=== PATIENT | female | born 1960 | race Caucasian/White ===

== ENCOUNTER 2021-12-10 07:58 | Emergency (ER) | payer MEDICAID, SELFPAY ==
[2021-12-10 08:12] VITALS: BP 130/72; PULSE 68; RESP 16; TEMP 36.1; O2SAT 98; BMI 25.2
[2021-12-10 08:57] LABS: Appearance Urine CLEAR; Color Urine YELLOW; Glucose Urine UA NEG (NEG); Leukocyte Esterase Urine NEG (NEG); Nitrite Urine NEG (NEG); Specific Gravity - Urine >= 1.030 (1.005-1.025); UACC Culture Trigger NO; Urine Blood TRACE (NEG); Urine Ketones 15 MG/DL (NEG); Urine Protein NEG (NEG-TRACE)
[2021-12-10 08:58] LABS: MANUAL DIFF FLAG NO
[2021-12-10 09:13] LABS: Anion Gap 13 (12-20); Blood Urea Nitrogen 15 mg/dL (9-16); Calcium 9.9 mg/dL (8.4-10.2); Carbon Dioxide 24 mmol/L (22-29); Chloride 108 mmol/L (96-108); Creatinine Clr Calc Pharmacy 69.3; Estimated Glomerular Filt Rate > 60; Glucose Random 115 mg/dL (60-115); Potassium 4.3 mmol/L (3.3-5.1); Sodium 141 mmol/L (135-145)
[2021-12-10 09:14] LABS: COVID-19 Test Negative (Negative); Squamous Epithelial Cell Urine 2+ /LPF
[2021-12-10 09:15] LABS: Bacteria Urine TRACE /LPF; RBC Urine 0-2 /HPF (0); WBC Urine 0-2 /HPF (0-4)
[2021-12-10 09:20] LABS: Basophils Percent Auto 0.7 % (0-2); Eosinophils Absolute Auto 0.2 X10*3/uL (0.0-0.4); Eosinophils Percent Auto 2.9 % (0-4); Hematocrit 38.3 % (37.0-47.0); Hemoglobin 12.3 g/dl (12.0-16.0); Imm Gran Abs Auto 0.02 X10*3/uL (0.00-0.03); Imm Gran Pct Auto 0.4 % (0.0-0.4); Lymphocytes Absolute Auto 1.6 X10*3/uL (1.2-4.9); Lymphocytes Percent Auto 28.5 % (20-40); Mean Corpuscular HGB Conc 32.1 g/dl (31.0-35.0); Mean Corpuscular Hemoglobin 29.8 pg (27.0-33.0); Mean Corpuscular Volume 92.7 fL (80.0-98.0); Mean Platelet Volume 9.8 fL (9.4-12.3); Monocytes Absolute Auto 0.6 X10*3/uL (0.1-1.2); Monocytes Percent Auto 11.1 % (2-11); Neutrophils Absolute Auto 3.1 x10*3/uL (2.0-8.3); Neutrophils Percent Auto 56.4 % (45-73); Platelet Count 286 X10*3/uL (160-400); Red Blood Count 4.13 X10*6/uL (4.20-5.50); Red Cell Distribution Width 13.3 % (11.0-16.0); White Blood Count 5.6 X10*3/uL (4.8-10.8)
--- NOTE | 2021-12-10 11:25 | ED.GENADULT ---
HPI - General Adult General Chief complaint: Weakness Stated complaint: unsteady, nausous Time Seen by Provider: 12/10/21 10:40 Source: patient Mode of arrival: ambulatory Limitations: no limitations History of Present Illness HPI narrative: Patient presents to the emergency department today for evaluation of her ?legs feeling like Jell-O? she states that when she woke up at 07:00 o'clock this morning she felt this way. She felt as though she was going to fall down but she did not have a fall, and did not need to sit down. She was able to walk up stairs to her daughter with and brought her to the emergency department. She denies headache, vision changes, dizziness, lightheadedness, neck pain, chest pain, palpitations, shortness of breath, difficulty breathing, cough, nausea, vomiting, abdominal pain, dysuria, urinary frequency, urine or bowel dysfunction, numbness or tingling of the upper lower extremities, saddle anesthesia. Reports depression, no SI/HI. Additionally she says she has intermittent sensation of something crawling beneath her right eye. Related Data Allergies Allergy/AdvReac Type Severity Reaction Status Date / Time No Known Allergies Allergy Unverified 04/27/20 16:43 [No Known Allergies*] Review of Systems Review of Systems: Constitutional: No weight loss, fever, chills, or fatigue. HEENT: No visual loss, blurred vision, double vision or yellow sclera. No hearing loss, sneezing, congestion, runny nose or sore throat. Skin: No rash or itching. Cardiovascular: No chest pain, chest pressure or chest discomfort. No palpitations or pedal edema. Respiratory: No shortness of breath, cough or sputum production. Gastrointestinal: No anorexia, nausea, vomiting or diarrhea. No abdominal pain or blood in stool. Genitourinary: No burning micturition. No urinary frequency or incontinence. Neurologic: Positive unsteady gait. No headache, dizziness, syncope, unilateral weakness, ataxia, numbness or tingling in the extremities. No change in bowel or bladder control. Musculoskeletal: No muscle pain, back pain, joint pain or stiffness. Hematologic: No bleeding or bruising. Lymphatics: No enlarged lymph nodes. Psychiatric:No depression or anxiety. Endocrine: . No polyuria or polydipsia. Yes all other systems are reviewed and are negative [facility] Past Medical History Attestation statement: The following information was validated with the patient. Source: old records reviewed Social History Social History Advance Directives: No Advance Directives Information Provided: No Patient : No Physical Exam ED Vital Signs: Vital Signs - 24 hr 12/10/21 08:12 Temperature 96.9 F Pulse Rate 68 Respiratory Rate 16 Blood Pressure 130/72 Pulse Oximetry 98 BMI result Body Mass Index 25.2 Vital signs have been reviewed as normal and appeared to be correct. Blood pressure normal.? Heart rate normal.? Respiration rate normal. Temperature normal.? Oxygen saturation normal. Appearance: Alert.?Oriented to person, place and time. No acute distress.?Normal affect. Eyes: Pupils equal, round and reactive to light.? ENT: Pharynx normal.?? Neck: Normal inspection.? Neck supple.?? CVS: Heart sounds normal. Normal heart rate and rhythm.? Pulses normal.?? Respiratory: No respiratory distress.? Lung sounds clear to auscultation bilaterally?? Abdomen: Soft and non-tender. Normoactive bowel sounds. ?? Skin: Skin warm and dry.? Normal skin color.? Extremities: No lower extremity edema.? No calf ttp? Neuro: Moves all extremities spontaneously. Sensation intact bilaterally. CN II-XII intact. No focal neuro deficits. Ambulates with normal steady gait. NIH Stroke Scale Time: 10:40 Level of Consciousness: Alert Level of Consciousness Questions: Answers both questions correctly Level of Consciousness Commands: Performs both tasks correctly Best Gaze: Normal Visual: No visual loss Facial Palsy: Normal Motor Arm (Right): No drift Motor Arm (Left): No drift Motor Leg (Right): No drift Motor Leg (Left): No drift Limb Ataxia: Absent Sensory: Normal Best Language: No aphasia Dysarthia: Normal Extinction and Inattention: No abnormality Score: 0 Course Course Course Narrative: Patient is a 61-year-old female with no significant past medical history presenting to the emergency department for evaluation of her ?legs feeling like rubber?. On clinical exam she has no focal neurological deficits, NIH stroke score is 0. She is ambulatory with a steady gait. Does not require any assistance. Extremity strength and muscle tone are normal. Unlikely to be intracranial infarct, ICH, SAH, would defer CT imaging of the head at this time. Discussed this care with ED attending Dr. Dhaliwal, who agrees. Patient is tearful at times during the exam reporting depression but denies suicidal ideations or homicidal ideations. Reporting that she has seen therapists and been on medication in the past and has no interest in speaking to anyone today regarding her depression. COVID-19 testing is negative. CBC is overall unremarkable. BMP is unremarkable. At this time the exact cause of her generalized weakness is unclear. She is not having any genitourinary symptoms to suggest possible urinary tract infection. No upper respiratory symptoms cough or shortness of breath to suggest viral infection, or pneumonia. No active chest pain palpitations or symptoms concerning for ACS. At this time the exact cause of her unsteady sensation is unclear. However, I feel that she is stable for discharge home and outpatient follow-up with primary care provider within 5 days, discussed reasons return back to the emergency department in all questions are answered. Medical Decision Making Lab Data Result diagrams: 12/10/21 08:52 12/10/21 08:52 Labs: Lab Results 12/10/21 12/10/21 12/10/21 Range/Units 08:23 08:23 08:52 WBC 5.6 (4.8-10.8) X10*3/uL RBC 4.13 L (4.20-5.50) X10*6/uL Hgb 12.3 (12.0-16.0) g/dl Hct 38.3 (37.0-47.0) % MCV 92.7 (80.0-98.0) fL MCH 29.8 (27.0-33.0) pg MCHC 32.1 (31.0-35.0) g/dl RDW 13.3 (11.0-16.0) % Plt Count 286 (160-400) X10*3/uL MPV 9.8 (9.4-12.3) fL Immature Gran % (Auto) 0.4 (0.0-0.4) % Neut % (Auto) 56.4 (45-73) % Lymph % (Auto) 28.5 (20-40) % [place] % (Auto) 11.1 H (2-11) % Eos % (Auto) 2.9 (0-4) % Baso % (Auto) 0.7 (0-2) % Lymph # (Auto) 1.6 (1.2-4.9) X10*3/uL [place] # (Auto) 0.6 (0.1-1.2) X10*3/uL Eos # (Auto) 0.2 (0.0-0.4) X10*3/uL Baso # (Auto) 0.0 (0.0-0.2) X10*3/uL Abs Immat Gran (auto) 0.02 (0.00-0.03) X10*3/uL Absolute Neuts (auto) 3.1 (2.0-8.3) x10*3/uL Absolute Nucleated RBC 0.000 (0.0-0.012) X10*3/uL Nucleated RBC % (auto) 0.0 (0.0-0.2) /100WBC Sodium (135-145) mmol/L Potassium (3.3-5.1) mmol/L Chloride (96-108) mmol/L Carbon Dioxide (22-29) mmol/L Anion Gap (12-20) BUN (9-16) mg/dL Creatinine (0.5-1.4) mg/dL Estim Creat Clear Calc Estimated GFR Random Glucose (60-115) mg/dL Calcium (8.4-10.2) mg/dL Urine Color YELLOW Urine Appearance CLEAR Urine pH 6.0 (5.0-8.0) Ur Specific [place] >= 1.030 H (1.005-1.025) Urine Protein NEG (NEG-TRACE) MG/DL Urine Glucose (UA) NEG (NEG) MG/DL Urine Ketones 15 (NEG) MG/DL Urine Blood TRACE (NEG) Urine Nitrite NEG (NEG) Ur Leukocyte Esterase NEG (NEG) Urine RBC 0-2 (0) /HPF Urine WBC 0-2 (0-4) /HPF Ur Squamous Epith Cells 2+ /LPF Urine Bacteria TRACE /LPF COVID-19 (FELI) Negative (Negative) COVID-19 Clin Com See Note 12/10/21 Range/Units 08:52 WBC (4.8-10.8) X10*3/uL RBC (4.20-5.50) X10*6/uL Hgb (12.0-16.0) g/dl Hct (37.0-47.0) % MCV (80.0-98.0) fL MCH (27.0-33.0) pg MCHC (31.0-35.0) g/dl RDW (11.0-16.0) % Plt Count (160-400) X10*3/uL MPV (9.4-12.3) fL Immature Gran % (Auto) (0.0-0.4) % Neut % (Auto) (45-73) % Lymph % (Auto) (20-40) % [place] % (Auto) (2-11) % Eos % (Auto) (0-4) % Baso % (Auto) (0-2) % Lymph # (Auto) (1.2-4.9) X10*3/uL [place] # (Auto) (0.1-1.2) X10*3/uL Eos # (Auto) (0.0-0.4) X10*3/uL Baso # (Auto) (0.0-0.2) X10*3/uL Abs Immat Gran (auto) (0.00-0.03) X10*3/uL Absolute Neuts (auto) (2.0-8.3) x10*3/uL Absolute Nucleated RBC (0.0-0.012) X10*3/uL Nucleated RBC % (auto) (0.0-0.2) /100WBC Sodium 141 (135-145) mmol/L Potassium 4.3 (3.3-5.1) mmol/L Chloride 108 (96-108) mmol/L Carbon Dioxide 24 (22-29) mmol/L Anion Gap 13 (12-20) BUN 15 (9-16) mg/dL Creatinine 0.78 (0.5-1.4) mg/dL Estim Creat Clear Calc 69.3 Estimated GFR > 60 Random Glucose 115 (60-115) mg/dL Calcium 9.9 (8.4-10.2) mg/dL Urine Color Urine Appearance Urine pH (5.0-8.0) Ur Specific [place] (1.005-1.025) Urine Protein (NEG-TRACE) MG/DL Urine Glucose (UA) (NEG) MG/DL Urine Ketones (NEG) MG/DL Urine Blood (NEG) Urine Nitrite (NEG) Ur Leukocyte Esterase (NEG) Urine RBC (0) /HPF Urine WBC (0-4) /HPF Ur Squamous Epith Cells /LPF Urine Bacteria /LPF COVID-19 (FELI) (Negative) COVID-19 Clin Com Discharge Plan Discharge Clinical Impression: Generalized weakness Patient Disposition: Home, Self-Care Instructions: Weakness (ED) Additional Instructions: Please contact your primary care provider to schedule a follow-up visit within 5 days. Be sure to rest, stay well hydrated and have plenty to each. Return to the emergency department any new or worsening symptoms or concerns Interventions: ED Discharge Assessment Last Done: 12/10/21 11:49 Discharge Date/Time: 12/10/21 11:50
== END 2021-12-10 11:50 | disposition home or self-care (01) ==
PROVIDERS: Emergency Provider Emergency Medicine; PCP Nurse Practitioner Family
DX: R53.1 Weakness (principal); R26.81 Unsteadiness on feet; Z20.822 Contact with and (suspected) exposure to COVID-19; Z79.899 Other long term (current) drug therapy
CPT/HCPCS: 36415; 80048; 81001; 81003; 85025; 87635; 99282; 99283

== ENCOUNTER 2022-10-05 08:01 | Emergency (ER) | payer MEDICAID, SELFPAY ==
[2022-10-05 08:09] VITALS: BP 116/74; PULSE 96; RESP 16; TEMP 36.2; O2SAT 100; BMI 23.1
--- NOTE | 2022-10-05 08:26 | ED.DENTAL ---
HPI - Dental/Oral General Chief complaint: Dental/Oral Stated complaint: Swollen face/Dental infection Time Seen by Provider: 10/05/22 08:12 Source: patient Mode of arrival: ambulatory History of Present Illness HPI Narrative: 62-year-old female with no significant past medical history presenting to the ED complaining of toothache and right-sided facial swelling x a few days. Denies fever, drainage from area, sore throat, difficulty swallowing, ear pain, trauma, recent dental procedures MD Complaint: tooth pain Related Data Previous Rx's Medication Instructions Recorded amoxicillin 875 mg-potassium 1 tab PO BID 7 days #14 tabs 10/05/22 clavulanate 125 mg tablet Allergies Allergy/AdvReac Type Severity Reaction Status Date / Time No Known Allergies Allergy Verified 10/05/22 08:08 [No Known Allergies*] Review of Systems Review of Systems: Constitutional: No Fever, No Chills ENT/Mouth: + dental pain, + facial swelling, No Ear Pain, No Nasal Congestion, No Hoarseness, No sore throat, No Rhinorrhea, No Swallowing Difficulty Cardiovascular: No Chest Pain, No SOB Respiratory: No Cough, No Sputum Gastrointestinal: No Nausea, No Vomiting, No Diarrhea, No Constipation, No Abdominal pain Genitourinary: No Dysuria, No Urinary Frequency, No Hematuria, No Flank Pain Musculoskeletal: No joint pain, No Myalgias, No Joint Swelling Skin: No Skin Lesions, No rash Neuro: No Weakness Yes all other systems are reviewed and are negative Constitutional: Constitutional: Reports as per [facility] Past Medical History Attestation statement: The following information was validated with the patient. Social History Social History Advance Directives: No Advance Directives Information Provided: Yes Physical Exam Vital Signs: Vital Signs: Last Vital Signs Temp 97.1 F 10/05/22 08:09 Pulse 96 10/05/22 08:09 Resp 16 10/05/22 08:09 BP 116/74 10/05/22 08:09 Pulse Ox 100 10/05/22 08:09 O2 Del Method 10/05/22 08:09 BMI result Body Mass Index 23.1 Const: General: cooperative, healthy appearing and no acute distress Orientation/consciousness: patient oriented x3 Limitations: no limitations HEENT: Other: + mild right-sided facial swelling/puffiness noted without erythema or warmth. Diffuse dental caries/poor dentition with right upper gingivitis, and mild gum tenderness to palpation. No focal fluctuance/induration, no drainage. Head: Yes normal to inspection and Yes atraumatic Ears: hearing grossly normal bilaterally, TM's normal bilaterally and mastoids normal General nose exam: Normal external nose present Face and sinus: Yes normal facial exam Teeth and gingiva: poor dentition Throat: Yes posterior oropharynx normal, Yes tonsils normal, Yes uvula midline, No peritonsillar mass and No uvula laterally displaced Eyes: General: appearance normal, both eyes and all related structures EOM: EOMs intact bilaterally Neck: Neck: Yes normal visual inspection, Yes no lymphadenopathy, Yes no meningeal signs, Yes supple and No anterior neck swelling Resp: Effort & Inspection: normal respiratory effort and no respiratory distress Cardio: Rate: regular rate Skin: Rashes: no rashes Wounds: no wounds Neuro: General: patient oriented x3, tone normal and no meningeal signs Gait exam (Neuro): Normal gait present Extrem: General: Yes normal to inspection Medical Decision Making Medical Decision Making MDM Narrative: 62-year-old female with no significant past medical history presenting to the ED complaining of toothache and right-sided facial swelling x a few days. On exam vital signs stable, NAD, nontoxic appearing, physical exam as above with mild right-sided facial swelling/ puffiness and diffuse dental caries. No focal dental abscess/ gingival abscess noted. No evidence of SYNTHETIC FILAMENT SPINNER. TMs WNL. Plan: PO antibiotics, dentistry follow-up. Patient supplied with a list of dental clinics Results discussed with patient including worrisome signs and symptoms and strict return precautions, and when to return to the emergency department. They verbalized understanding and feel safe for discharge at this time. Differential Diagnosis Differential Diagnoses: The differential diagnosis associated with the presentation includes as above Prescription Management I considered prescription management with: Pain Medication Discharge Plan Discharge Clinical Impression: Dental caries Patient Disposition: Home, Self-Care Instructions: Tooth Extraction (DC) Additional Instructions: YOU NEED TO SEE A DENTIST Augmentin is an antibiotic please take as prescribed Take Tylenol and Motrin for pain and swelling. Take ibuprofen with food If facial swelling or pain becomes worse/ persistent, face turns red, you have fever, difficulty her pain when swallowing return to the emergency department Prescriptions: New amoxicillin-pot clavulanate 945-393 mg tablet 1 tab PO BID 7 Days Qty: 14 0RF Referrals: Sandra Cerna, [employer] [Primary Care Provider] - 2 days Interventions: ED Discharge Assessment Last Done: 10/05/22 08:53 Discharge Date/Time: 10/05/22 08:54
== END 2022-10-05 08:54 | disposition home or self-care (01) ==
PROVIDERS: Emergency Provider Emergency Medicine; PCP Nurse Practitioner Family
DX: K02.9 Dental caries, unspecified (principal); K08.89 Other specified disorders of teeth and supporting structures
CPT/HCPCS: 99282; 99283

== ENCOUNTER 2023-04-18 15:42 | Emergency (ER) | payer SELFPAY ==
[2023-04-18 16:29] VITALS: BP 124/70; PULSE 65; RESP 16; TEMP 36.6; O2SAT 95; BMI 22.7
== END 2023-04-18 22:06 | disposition left against medical advice (07) ==
PROVIDERS: Emergency Provider Emergency Medicine
DX: S00.93XA Contusion of unspecified part of head, initial encounter (principal); W17.89XA Other fall from one level to another, initial encounter; Y93.89 Activity, other specified; Y92.019 Unspecified place in single-family (private) house as the place of occurrence of the external cause; Y99.9 Unspecified external cause status
CPT/HCPCS: 99281